=== PATIENT | female | born 1950 | race Hispanic/Latino ===

== ENCOUNTER 2017-10-16 10:00 | Outpatient (CLI) | payer MEDICARE ==
--- NOTE | 2017-10-18 12:14 | PET ---
PET CT: HISTORY: 66-year-old female with left breast cancer. Status post left mastectomy in March 2010 and chemo/radiati on therapy in April 2011. Exam requested for restaging. TECHNIQUE: PET scanning with CT attenuation correction was performed from the base of the brain through the prox imal thighs following the intravenous administration of 14.6 mCi F18-FDG in the right antecubital fos sa. Imaging was performed after an uptake interval of 55 minutes. COMPARISON: PET CT dated 06/05/17. FINDINGS: There is physiologic activity in the heart, GI and tracts, tonsils, and the visualized portions of the brain. There is continued focal hypermetabolic activity in the right infrahilar region with a SUV of 3.3 (pr eviously 5.4). It cannot be said with certainty if this is due to FDG localization in a lymph node or vascular structure. Recommend evaluation with a contrast enhanced CT scan. No hypermetabolic mediastinal, left hilar, axillary, cervical, abdominopelvic lymph nodes, pulmonary nodules, liver, adrenal, or skeletal lesions are identified. The CT scan used for attenuation correction demonstrates no evidence of pleural effusions or ascites. IMPRESSION: Persistent focally increased FDG uptake in the right infrahilar region with interval reduction in SUV from 5.4 on 06/05/17 to 3.3 on the current study. Recommend CT scan of the chest with IV contrast to determine if this is within a lymph node or vascular structure. POS: KELLY
== END 2017-10-16 10:01 | disposition home or self-care (01) ==
LOC: PET 10:00
PROVIDERS: ATTEND Radiology Radiation Oncology
DX: C50.112 Malignant neoplasm of central portion of left female breast (principal)
CPT/HCPCS: 78815; A9552

== ENCOUNTER 2018-06-09 10:15 | Outpatient (CLI) | payer MEDICARE ==
--- NOTE | 2018-06-09 13:06 | PET ---
PET WITH CT SKULL TO MID THIGH. COMPARISON: 10/16/17. CLINICAL HISTORY: Breast cancer, left-sided. RADIOPHARMACEUTICAL: 10.9 mCi Fluorine 18-FDG IV. There is appropriate biodistribution of radiotracer activity. FINDINGS: The prior focus of increased metabolic activity at the right infrahilar region has resolved. There i s no evidence of hypermetabolic mass or adenopathy. Evidence of prior left mastectomy with indwellin g breast prosthesis. There is no hypermetabolic activity at the chest wall. There are scattered blebs of the bilateral pulmonary parenchyma, more numerous on the right. Evidenc e of prior cholecystectomy. There is scattered vascular calcification. There is a tiny air density focus within the central abdomen adjacent the wall of the traversing third portion of the duodenum fa voring a small noninflamed diverticulum. IMPRESSION: 1. No hypermetabolic mass or adenopathy. 2. Prior hypermetabolic right infrahilar focus has resolved from prior exam. POS: KELLY
== END 2018-06-09 10:16 | disposition home or self-care (01) ==
LOC: PET 10:15
PROVIDERS: ATTEND Internal Medicine Hematology & Oncology
DX: C50.919 Malignant neoplasm of unspecified site of unspecified female breast (principal)
CPT/HCPCS: 78815; A9552

== ENCOUNTER 2019-05-02 09:55 | Outpatient (CLI) | payer MEDICARE ==
--- NOTE | 2019-05-02 15:04 | PET ---
PET CT: HISTORY: A 68-year-old female with left breast cancer. The patient is post chemo and radiation therapy. Exam is requested for restaging. COMPARISON: 06/09/2018 TECHNIQUE: PET scanning with CT attenuation correction was performed from the base of the brain through the prox imal thighs, following the intravenous administration of 12 millicuries of F18 fluorodeoxyglucose in the right antecubital fossa. FINDINGS: There is increased FDG localization in the 15 mm right infrahilar nodule, with an SUV of 2.9. This d id not demonstrate abnormal metabolic activity on the previous exam. No stacy hypermetabolism is seen in the neck, chest, axillae, abdomen or pelvis. No hypermetabolic pulmonary nodules in the liver, adrenal, or skeletal lesions are seen. There is physiologic activity in the GI and tracts and in the visualized portions of the brain. I ncreased uptake in the tonsils is also likely to represent physiologic activity. CT scan used for attenuation correction demonstrates no evidence of pleural effusions or ascites. IMPRESSION: Interval development of hypermetabolic activity in the right infrahilar nodule since 06/09/2018. POS: KELLY
== END 2019-05-02 09:56 | disposition home or self-care (01) ==
LOC: PET 09:55
PROVIDERS: ATTEND Internal Medicine Hematology & Oncology
DX: C50.912 Malignant neoplasm of unspecified site of left female breast (principal); I10 Essential (primary) hypertension; R91.1 Solitary pulmonary nodule
CPT/HCPCS: 78815; A9552

== ENCOUNTER 2025-07-19 08:45 | Outpatient (CLI) | payer OTHER | END 2025-07-19 08:46 | disposition home or self-care (01) | LOC: PET 08:45 | PROVIDERS: ATTEND Internal Medicine Hematology & Oncology | DX: C34.01 Malignant neoplasm of right main bronchus (principal); C50.112 Malignant neoplasm of central portion of left female breast; R59.0 Localized enlarged lymph nodes; R91.8 Other nonspecific abnormal finding of lung field; C79.51 Secondary malignant neoplasm of bone; C79.89 Secondary malignant neoplasm of other specified sites | CPT/HCPCS: 78815; A9552 ==